=== PATIENT | female | born 1940 | race Caucasian/White ===

== ENCOUNTER → 2016-10-03 | Outpatient (CLI) | payer OTHER ==
[2016-10-03 13:23] LABS: BASOPHILS # (AUTO) 0.04 10*3/UL; BASOPHILS % (AUTO) 0.5 % (0-1); EOSINOPHILS % (AUTO) 3.3 % (0-8); HEMATOCRIT 36.9 % (37.0-47.0); HEMOGLOBIN 11.8 g/dL (12.0-16.0); IMM GRAN % (AUTO) 0.6 % (0-5); IMM GRAN# (AUTO) 0.05 10*3/UL; LYMPHOCYTES # (AUTO) 1.34 10*3/uL; LYMPHOCYTES % (AUTO) 15.2 % (10-50); MEAN CORPUSCULAR HEMOGLOBIN 28.6 PG (27-31); MEAN PLATELET VOLUME 11.3 FL (7.4-12.2); MONOCYTES # (AUTO) 0.56 10*3/UL (0.3-0.8); MONOCYTES % (AUTO) 6.3 % (5-15); NEUTROPHILS # (AUTO) 6.55 10*3/UL; NEUTROPHILS % (AUTO) 74.1 % (50-80); RDW COEFFICIENT OF VARIATION 12.3 % (11.5-14.5); RED BLOOD COUNT 4.12 10^6/uL (4.20-5.40); WHITE BLOOD COUNT 8.83 10^3/uL (4.8-10.8)
[2016-10-03 13:37] LABS: PLATELET MORPHOLOGY COMMENT NORMAL MORPHOLOGY (NORM)
[2016-10-03 13:44] LABS: BILIRUBIN,TOTAL 0.5 mg/dL (0.3-1.2); CALCIUM 9.7 mg/dL (8.7-10.7); CREATININE 0.5 mg/dL (0.50-1.20); LDL CHOLESTEROL,CALCULATED 96.2 mg/dL; POTASSIUM 3.8 meq/L (3.8-5.2); TOTAL PROTEIN 7.5 g/dL (6.1-8.0)
== END ==
LOC: LAB 13:01
PROVIDERS: ATTEND Internal Medicine
DX: E03.9 Hypothyroidism, unspecified (principal); E78.5 Hyperlipidemia, unspecified; J44.9 Chronic obstructive pulmonary disease, unspecified; R06.02 Shortness of breath
CPT/HCPCS: 36415; 80053; 80061; 82550; 84443; 85025

== ENCOUNTER → 2017-04-10 | Outpatient (CLI) | payer OTHER | LOC: MMPC 11:11 | PROVIDERS: ATTEND Internal Medicine | DX: R09.89 Other specified symptoms and signs involving the circulatory and respiratory systems (principal); J44.9 Chronic obstructive pulmonary disease, unspecified; I10 Essential (primary) hypertension; E03.9 Hypothyroidism, unspecified; E78.5 Hyperlipidemia, unspecified | CPT/HCPCS: 99214; G0463 ==

== ENCOUNTER → 2017-04-17 | Outpatient (CLI) | payer OTHER ==
--- NOTE | 2017-04-18 06:31 | DI ---
US CAROTIDS B/L,04/17/2017 9:12 AM: Clinical History: Bilateral carotid bruit Previous Exam: March 04, 2011 Findings: Muscle grayscale and color Doppler sonographic images are obtained through the carotid systems bilate rally, and demonstrate mild intimal thickening. There is also stable atherosclerosis of the carotid b ulbs bilaterally. Peak systolic velocity on the right measured 70 cm/s. Peak systolic velocity in the internal carotid artery measures 73 cm/s. Flow within the vertebral artery was antegrade. ICA to CCA ratio measured 1.0 on the right and 1.0 on the left. Peak systolic velocity within the left carotid system measured 84 cm/s within the left common carotid artery. Peak systolic velocity in the internal carotid artery measured 85 cm/s. Flow within the vertebral artery is antegrade. Impression: Mild peripheral vascular disease within the carotid bulbs without hemodynamically significant stenosi s.
== END ==
LOC: US 09:07
PROVIDERS: ATTEND Internal Medicine
DX: R09.89 Other specified symptoms and signs involving the circulatory and respiratory systems (principal); I73.9 Peripheral vascular disease, unspecified
CPT/HCPCS: 93880